=== PATIENT | female | born 1945 | race Caucasian/White ===

== ENCOUNTER 2016-07-05 19:39 | Inpatient (IN) | payer MEDICARE, MEDICAID ==
[~2016-07-05] VITALS: Ht 144.8 cm; Wt 95.2 kg
--- NOTE | ~2016-07-05 | WND ---
ADMIT: 07/05/2016 RM/LOC: 410 [facility] MR#: [id number] [address] [address] [place] [address] Wound Care Clinic SEX: F AGE: 70 : 1945 DATE OF VISIT: 07/06/2016 TIME IN: 8:00 TIME OUT: 8:15 REASON FOR VISIT: Evaluation and treatment of bilateral lower extremities. This is a request for wound care from Dr. Francisco Javier Melchor. HISTORY OF PRESENT ILLNESS: This is a 70-year-old female who is staying at [facility] in [place], [place]. She was noted to have increased confusion as well as foul-smelling urine. A urine was collected that was positive for infection. She was started on Levaquin, but the patient had an intolerance to this medication, so she did not start any antibiotic treatment. Confusion worsened and presented to the emergency room and she was noted to have an elevated lactic acid and white count. Her creatinine had also elevated above baseline. Therefore, she was given fluids and IV antibiotics. It was also noted that she had a bright red, warm right lower extremity. Therefore, Wound Care was consulted for further evaluation and treatment. PAST MEDICAL HISTORY: Shows type 2 diabetes mellitus. Coronary artery disease. Hypertension. Congestive heart failure. COPD. Hypothyroidism. Depression. Dimension. Diabetic neuropathy. PAST SURGICAL HISTORY: Carpal tunnel repair. ALLERGIES: Levaquin, Vioxx, cephalexin, sulfa, epinephrine. CURRENT MEDICATIONS: Per the MAR. Please see the MAR for further details. 1. Aldactone. 2. Carafate. 3. Coreg. 4. Demadex. 5. Effexor. 6. Feosol. 7. Klor-Con. 8. Mag-Ox. 9. Oyster shell with vitamin D. 10.Reglan. 11.Requip. 12.Synthroid. 13.Vitamin B12. 14.Asmanex. 15.Restasis. 16.Levemir. 17.Lovenox. 18.NovoLog. 19.Merrem. P.r.n. Medications: ADMIT: 07/05/2016 RM/LOC: 410 [facility] MR#: [id number] 2620 [facility] [address] [place] [id number] [place] [address] Wound Care Clinic SEX: F AGE: 70 : 1945 1. Colace. 2. Culturelle. 3. FiberCon. 4. Glutose. 5. Hydrocodone/acetaminophen. 6. Maalox. 7. Tylenol. 8. Xanax. 9. Zofran. 10.DuoNeb. 11.Glucagon. 12.Nitrostat. 13.Mycostatin powder. SOCIAL HISTORY: She has a bachelor's degree. Never smoked. No history of chemical or alcohol use. She is currently residing at [facility] in [place]. She is and disabled. FAMILY HISTORY: Shows heart disease, cancer, hypertension, stroke and diabetes. REVIEW OF SYSTEMS: She is examined in her hospital room, where she is awake and alert. She does answer some questions in confused way. For example, when I asked how long her leg had been sore, she said "82 years." She is pleasant. She denies any recent fever or chills. No nausea or vomiting. No cough, cold, or chest pain. She states that on and off she does have some abdominal discomfort, but denies any current nausea or vomiting. She also states she has pain occasionally on and off in her stomach. She also reports occasionally pain in her right leg. FOCUSED EXAM: VITAL SIGNS: 98.3, 80, 14, blood pressure 102/47, O2 sats on room air is 95%. Body-wide skin exam was done. She does have slight redness and moisture in abdominal and pannus folds. No ulcerations noted. To the right lower extremity, foot circumference is 21.5 cm, ankle is 23 cm, and calf 20 cm, malleolus 35 cm. Posterior tibialis and dorsalis pedis is 1+. She does have red, warm edema that runs from her knee to her ankle that is 30 cm in length and is circumferential for 35 cm. Dry skin noted. Hemosiderin staining noted 9 x 13 on the anterior nicolas. Toes with quick capillary refill. No open areas noted. No drainage noted. Dry skin noted. Focused exam of left lower extremity shows foot circumference 22 cm, ankle is 21 cm, and calf 20 cm, malleolus is 36.5 cm. Posterior tibialis is 1+. Dorsalis pedis is 2+. She does have browny hemosiderin staining 13 cm x 13 cm on the anterior nicolas. Dry, flaky skin noted. No surrounding erythema or induration. Minimal edema noted. ADMIT: 07/05/2016 RM/LOC: 410 [facility] MR#: [id number] [address] [place] [id number] [place] [address] Wound Care Clinic SEX: F AGE: 70 : 1945 ASSESSMENT: 1. Moisture-associated dermatitis of groin and abdominal folds. 2. Cellulitis of right lower extremity. 3. Bilateral lower extremity with venous insufficiency changes. TREATMENT PLAN: Since she currently has no openings on her lower extremities, we will apply Aloe [place] to the legs twice daily. Size small EdemaWear from toes to popliteal crease. Recommended that her legs be elevated on pillows with heels floated. IsoFlex mattress she is currently on. Also recommended that the pannus and groin folds be washed twice daily with antibacterial soap and water prior to application of the nystatin b.i.d. Thank you for this referral and allowing us to participate in her care. Nicki Sepulveda APRN/ yolanda JOB #: [id number] CC: Kirill Kraft, Attending Physician Maci Maki, Family Physician
--- NOTE | ~2016-07-05 | ECH ---
Transthoracic Echocardiography Report (TTE) Demographics Patient Name CHRISTINE TURPIN Date of Study 07/06/2016 Patient Number [id number] Visit Number [id number] Date of 1945 Room Number 410 Accession Number [id number] Gender Female Age 70 year(s) Referring Swapnil Talley Blueprint Tracer Clau Moore Physician Teofilo KEARNEY [facility] Alexandre Physician Interpreting Teofilo KEARNEY Family Service Counselor Physician Alexandre Supervising Ordering Physician Swapnil Talley MD/MLP Nurse Stress Foundry Superintendant Conclusions Contractility Score Summary Normal Left Ventricular contractility was noted. Summary Technically adequate exam. The estimated left ventricular ejection fraction is 55-60%. No significant valvular abnormalities. Recommendation The patient will be given the results of this study by the physician who ordered the exam. Procedure Type of Study TTE procedure:Echo Complete SF. Procedure Date Date: 07/06/2016 Start: 10:13 AM Technical Quality: Adequate visualization Indications:Atrial fibrillation, Coronary artery disease, Diabetes and Hypertension. Appropriate Use Criteria: 9 Height: 57 inches Weight: 200 pounds BSA: 1.8 m Rhythm: NSR HR: 85 bpm BP: 112/50 mmHg M-Mode/2D Measurements LV Diastolic Dimension: 4.93 cm LV Systolic Dimension: 3.66 cm LV Septum Diastolic: 0.67 cm LV PW Diastolic: 0.77 cm AO Root Dimension: 2.2 cm Cardiac Output: 5.38 l/min LA Dimension: 3.23 cm Cardiac Index: 2.99 l/min*m RV Diastolic Dimension: 3.28 cm LA volume index: 29 ml/m LVOT: 1.88 cm LVOT VTI: 22.82 cm RV Base: 2.7 cm LV Stroke volume: 63.31 ml RV Mid: 2.4 cm LV Stroke volume index: 35.17 ml/m TAPSE: 2.6 cm TDI-S': 12 cm/s Doppler Measurements AV Peak Velocity: 1.6 m/s MV Peak E-Wave: 1.02 m/s AV Peak Gradient: 10.24 mmHg MV Peak A-Wave: 0.87 m/s AV Mean Gradient: 6.15 mmHg MV E/A Ratio: 1.18 LVOT Peak Velocity: 1.22 m/s MV P1/2t: 61.7 msec AV Area (Continuity):1.95 cm MV Deceleration Time: 198.9 msec TR Velocity:2.25 m/s MV Area (PHT): 3.57 cm TR Gradient:20.25 mmHg PV Peak Velocity: 0.99 m/s Estimated RAP:3 mmHg PV Peak Gradient: 3.94 mmHg Estimated RVSP: 23 mmHg Estimated PASP: 23.25 mmHg E' Septal Velocity: 0.09 m/s A' Septal Velocity: 0.07 m/s E' Lateral Velocity: 0.1 m/s A' Lateral Velocity: 0.08 m/s RA Area: 12.5 cm Findings Left Ventricle Normal left ventricle size and function. Diastolic assessment reveals normal relaxation. Right Ventricle Normal right ventricle structure and function. Left Atrium Normal left atrial size. Right Atrium Normal right atrial size. Mitral Valve Mild mitral annular calcification. Trivial mitral regurgitation by color Doppler. Aortic Valve The aortic valve was not well imaged. The aortic valve is mildly sclerotic. Tricuspid Valve Normal tricuspid valve structure and function. Trivial tricuspid regurgitation by color Doppler. Normal pulmonary pressures. Pulmonic Valve The pulmonic valve is not well visualized. Pericardial Effusion No evidence of pericardial effusion. Miscellaneous Visualized portions of the aortic root and ascending aorta appear normal in size. Pleural Effusion No evidence of pleural effusion. Contractility Score LV regional wall motion:(0-Non visualized 1-Normal 2-Hypokinesis 3-Akinesis 4-Dyskinesis 5-Aneurysm) Signature
--- NOTE | 2016-07-11 11:15 | CO ---
ADMIT: 07/05/2016 RM/LOC: 410 [facility] MR#: [id number] [address] [address] [place] [address] Consultation SEX: F AGE: 70 : 1945 DATE OF CONSULTATION: 07/06/2016 ATTENDING PHYSICIAN: Kirill Kraft CONSULTING PHYSICIAN: Alexandre Red MD REASON FOR CONSULT: Atrial fibrillation. Lesly Jennings RN, scribing for Dr. Alexandre Red. HISTORY OF PRESENT ILLNESS: Gia is a pleasant 70-year-old female, I have been asked to see in Cardiology consultation for Dr. Francisco Javier Melhcor for atrial fibrillation. She has prior history of paroxysmal atrial fibrillation and she follows with [facility] for this. She was last seen in July of 2015, by Dr. Ngo. She has not been on anticoagulation due to history of GI bleed from gastrointestinal stromal tumor, and in July, her office note discussed that they were discussing her case in [place] as to whether not she would benefit from surgical resection. She has history of dementia. She [facility] in a [facility]. She has history of hypertension, hyperlipidemia, diabetes, and former tobacco use, remote. Gia [facility] with increased confusion, positive fever, and has foul-smelling urine with UTI. She was quite confused at the facility, could not recall anything at that time. Currently, she is alert and oriented to her location, day, and self. She denies any symptoms of chest discomfort, shortness of breath, or palpitations. She has had some melena this morning as well. She is on antibiotics. She has been in atrial fibrillation on this admission with heart rates anywhere from 80s to 90s. PAST MEDICAL HISTORY: 1. Diastolic heart failure. 2. Paroxysmal atrial fibrillation. 3. Hypertension. 4. Diabetes. 5. Hyperlipidemia. 6. Remote tobacco use. 7. Right lower extremity cellulitis. 8. Cataracts, status post extraction. 9. COPD. 10.Obstructive sleep apnea. 11.History of GI bleeding. 12.History of gastrointestinal stromal tumor. 13.Acute kidney injury, currently with UTI. 14.Degenerate joint disease. 15.Spinal stenosis. 16.Hypothyroidism. 17.Diabetic neuropathy. 18.Restless legs syndrome. ADMIT: 07/05/2016 RM/LOC: 410 [facility] MR#: [id number] [address] [address] [place] [address] Consultation SEX: F AGE: 70 : 1945 19.Dementia. 20.Depression. PAST SURGICAL HISTORY: Includes; 1. Carpal tunnel release. 2. Cataract extraction. 3. Cholecystectomy. 4. Hysterectomy. ALLERGIES: 1. EPINEPHRINE. 2. PENICILLIN. 3. LEVAQUIN. 4. VIOXX. 5. SULFA. MEDICATIONS: Current medications include; 1. Aldactone 25 daily. 2. Carafate 1 g p.o. a.c. 3. Coreg 3.125 p.o. b.i.d. 4. Demadex 20 daily. 5. Effexor 150 daily. 6. Iron sulfate 325 daily. 7. Potassium chloride 20 mEq p.o. b.i.d. 8. Mag-Ox 400 daily. 9. Oyster shell calcium 500 b.i.d. 10.Reglan 5 b.i.d. 11.Requip 2 mg at bedtime. 12.Synthroid 100 daily. 13.Vitamin B12, 1000 mcg p.o. daily. 14.Asmanex inhalation daily. 15.Restasis 0.4 both eyes b.i.d. 16.Levemir 35 units subcu daily. 17.Lovenox 40 mg subcu daily. 18.NovoLog insulin 18 units subcu a.c. 19.Merrem 1 g IV q.12 hours. FAMILY HISTORY: Positive family history of diabetes in daughter. Positive family history of cancer in mother. Denies family history of heart disease or stroke. SOCIAL HISTORY: Gia lives in penitentiary. She has dementia. She has no alcohol, drug, or current tobacco use. She quit after five-pack year in 1985. REVIEW OF SYSTEMS: GENERAL: Recent fever of 100.3. EYES: History of cataracts, status post extraction. Denies any vision changes currently. THROAT, MOUTH, AND EARS: Denies any sore throat or hearing loss. ADMIT: 07/05/2016 RM/LOC: 410 [facility] MR#: [id number] [address] [place] [phone] [place] [address] Consultation SEX: F AGE: 70 : 1945 RESPIRATORY: She has history of COPD and obstructive sleep apnea. Denies any hemoptysis. GASTROINTESTINAL: She has a large bloody stool this morning. She has history of gallbladder extraction and liver cirrhosis in the past. She denies any trouble swallowing. GENITOURINARY: Currently is admitted with UTI with acute kidney injury. MUSCULOSKELETAL: History of degenerative joint disease. Spinal stenosis. ENDOCRINE: History of diabetes and hypothyroidism. HEMATOLOGIC: She is anemic with a hemoglobin of 10.8. She has history of gastrointestinal stromal cancer. She has bleeding issues currently with GI bleeding. NEUROLOGIC: History of diabetic neuropathy and restless legs syndrome. PSYCHIATRIC: She has history of dementia. Currently, she is alert and oriented x3. Diagnosed with depression. EXTREMITIES: Right lower extremity cellulitis. PHYSICAL EXAMINATION: VITAL SIGNS: Blood pressure 102/47, heart rate 80, respirations 14, temperature 98.3, oxygenation 95% on room air. GENERAL: No acute distress, mildly confused, but is aware of surroundings. SKIN: [place], warm and dry. EYES: Sclerae clear. No xanthelasmas. ENT: Oral mucosa is pink and moist. No jugular venous distention or carotid bruits. CHEST: Respirations are even and unlabored. Lungs are clear to auscultation. HEART: Irregularly irregular. No murmurs, gallops, or rubs. ABDOMEN: Soft and nontender. MUSCULOSKELETAL: Gait is normal EXTREMITIES: Mild edema. PSYCHIATRIC: Alert and oriented. Mood and affect are appropriate. DIAGNOSTIC DATA: Positive UA infection with a culture and sensitivity showing gram-negative rods. Sodium 132, potassium 3.1, BUN 25, creatinine 1.2, glucose 224, magnesium 2.6. CK 63, MB less than 0.5, troponin less than 0.015. TSH 1.28. INR 1.2. White blood cell count 15.5, hemoglobin 10.8, hematocrit 33.2, platelets 99. Lactic acid 2.1. ASSESSMENT AND PLAN: 1. Atrial fibrillation with long history of atrial fibrillation, ADMIT: 07/05/2016 RM/LOC: [address] [place] [address] MR#: [id number] [address] [place] [phone] [place] [address] Consultation SEX: F AGE: 70 : 1945 asymptomatic. No anticoagulation secondary to history of gastrointestinal bleed. Continue beta terrence. 2. Urinary tract infection. 3. Chronic diastolic failure. From a cardiac perspective, Gia is doing well. No further recommendation. She will follow up with Dr. Ngo at [facility] in 1 month. Thank you for the consultation. I have read and agree with the documentation that has been completed regarding this visit. By signing this record, I attest that the documentation was completed in my physical presence and is an accurate record of the encounter. Lesly Jennings RN / Alexandre Red MD / yolanda JOB #: [id number] CC: Kirill Kraft, Attending Physician Maci Maki, Family Physician
--- NOTE | 2016-07-12 12:51 | HP ---
ADMIT: 07/05/2016 RM/LOC: [facility] MR#: [id number] [address] [address] [place] [address] History and Physical SEX: F AGE: 70 : 1945 DATE OF SERVICE: CHIEF COMPLAINT: Increased confusion and foul-smelling urine. HISTORY OF PRESENT ILLNESS: This is a 70-year-old female with past medical history significant for dementia, type 2 diabetes mellitus, coronary artery disease, CHF, hypertension, COPD, admitted with increased confusion and foul- smelling urine. According to the care home, the patient was very confused and combative today. Dr. Kraft was contacted, and the UA was collected that was positive for infection. She was started on Levaquin, but the patient has an intolerances to this medication, so the care home did not give it to her. The confusion worsened and so she was sent to the Emergency Department. In the ED, her vitals were noted to be stable other than a temperature of 100.3. Her lactic acid was elevated to 2.7, and her white count was 21.8 with 18,000 neutrophils. Her creatinine was also elevated to 1.3. She was started on IV fluids and IV Levaquin down in the ER. Her EKG was also significant for atrial fibrillation. In looking back through her records, it does not appear that she has been diagnosed with this in the past. The patient is somewhat confused here in her room and is unable to answer questions regarding her health, but she is able to tell me that she is having some pain in her lower extremities. PAST MEDICAL HISTORY: 1. Type 2 diabetes mellitus. 2. Coronary artery disease. 3. Hypertension. 4. CHF. 5. COPD. 6. Hypothyroidism. 7. Depression. 8. Dementia. 9. Diabetic neuropathy. PAST SURGICAL HISTORY: Carpal tunnel repair. MEDICATIONS: See list. ALLERGIES: EPINEPHRINE, PENICILLIN, LEVAQUIN, VIOXX, AND SULFA. SOCIAL HISTORY: Denies tobacco, alcohol, or illegal drug use. She lives at [facility] in [place]. FAMILY HISTORY: Noncontributory. REVIEW OF SYSTEMS: Unable to obtain due to the patient's dementia. PHYSICAL EXAMINATION: VITAL SIGNS: Blood pressure 104/65, pulse 94, respirations 20, temp 99.6, and saturating 98% on room air. GENERAL: She is alert and oriented to person, but not place or time. ADMIT: 07/05/2016 RM/LOC: 410 [facility] MR#: [id number] [facility] [address] [address] [place] [address] History and Physical SEX: F AGE: 70 : 1945 HEART: Irregularly irregular. LUNGS: Decreased breath sounds at the bases. ABDOMEN: Obese, soft, and nontender. EXTREMITIES: Erythema edema and warmth of the right lower extremity. This was marked. She does have brawny venous stasis changes in the left lower extremity. LABORATORY DATA: Sodium 134, potassium 4.2, and creatinine 1.3. INR 1.2. White count 21.8, hemoglobin 11.7, lactic acid 2.7. UA was significant for greater than 5000 white cells, 3+ leukocyte esterase, positive nitrite, and 4+ blood. Chest x-ray was negative. EKG showed atrial fibrillation with a rate of 96. ASSESSMENT/PLAN: 1. Urosepsis. We did go ahead and stop Levaquin due to her intolerance. She does have a history of vancomycin-resistant UTI, so I started her on Zosyn. We will continue to trend her lactic acid and watch for her urine culture. 2. Right lower extremity cellulitis. Again, she is on Zosyn. We will continue to monitor this. This was marked with a purple pen. 3. Acute kidney injury. We are giving her IV hydration. We will continue to monitor labs. 4. New onset atrial fibrillation. Cardiology has been consulted. We will go ahead and get an echo in the morning. We will need to weigh the risks and benefits of starting anticoagulation on this patient. 5. Hypomagnesemia. I replaced this. We will recheck that in the morning. 6. Skin breakdown. I consulted wound care. 7. Type 2 diabetes mellitus. We will continue her long-acting insulins here in the hospital as well as start her on sliding scale insulin. We will hold all of her oral medications. 8. Coronary artery disease. 9. Hypertension. 10.Hypothyroid. 11.Chronic obstructive pulmonary disease. 12.Dementia. Tangela Gomez DO Resident / Kirill Kraft MD / yolanda JOB #: [id number] CC: Francisco Javier Melchor, Attending Physician Maci Maki, Family Physician
--- NOTE | 2016-07-28 11:58 | DS ---
ADMIT: 07/05/2016 RM/LOC: 410 [facility] MR#: [id number] [address] [address] [place] [address] Discharge Summary SEX: F AGE: 70 : 1945 ADMISSION DATE: 07/05/2016 DISCHARGE DATE: 07/08/2016 DISCHARGE DIAGNOSES: 1. Urosepsis, urine culture grew out E (Escherichia) coli. 2. Right lower extremity cellulitis. 3. Acute kidney injury. 4. Type 2 diabetes mellitus. 5. Atrial fibrillation. 6. Coronary artery disease. 7. Hypertension. 8. Hypothyroidism. 9. COPD (chronic obstructive pulmonary disease). 10.Dementia. 11.History of GI (gastrointestinal) stromal tumor. CONSULTS: Cardiology. HISTORY OF PRESENT ILLNESS: This is a 70-year-old female, who was admitted with increased confusion and foul-smelling urine. According to the prison, the patient was very confused and combative during the day. Dr. Kraft was contacted and the UA was collected that was positive for an infection. She was started on Levaquin at that time but the prison did not give it to her because they noted that she had an intolerance to this medicine. Because she was not taking any antibiotic she started getting worse and so she was sent to the ER. In the emergency room her vitals were noted to be stable other than a temp of 100.3. Her lactic acid was elevated to 2.7, and her white count was 21.8 with 18,000 neutrophils. Her creatinine was also elevated to 1.3. She was started on IV fluids and IV Levaquin down in the ER. Her EKG was also significant for atrial fibrillation with rate controlled in the 80s and 90s. HOSPITAL COURSE: Because of the patient's intolerance to Levaquin this was stopped and she was started on Zosyn for urosepsis. She was also noted to have some cellulitis on her right lower extremity and it was felt that Zosyn could cover this as well. It was then noted that she had an allergy to penicillin so she was switched to meropenem at that time. Her lactic acid continued to trend down after being on antibiotics and the confusion seemed to clear up. Cardiology was consulted because it was not found that she had atrial fibrillation in old records but they had actually been seeing her for several years and knew that she had atrial fibrillation and was on a beta- terrence for this. She is not on any anticoagulation due to history of a bleeding stromal tumor. Cardiology felt that it was okay for her to continue with the beta terrence and no new orders were needed for her atrial fibrillation. They plan to have her follow up with Dr. Ngo in one month. An echo was done that showed an ejection fraction of 55-60%. Wound Care was consulted because she was noted to have some wounds on her gluteal region and so these were managed by the wound care team. She did have an episode of a melanotic stool and so her Lovenox that was being used for DVT prophylaxis was ADMIT: 07/05/2016 RM/LOC: 410 [facility] MR#: [id number] [address] [place] [id number] [place] [address] Discharge Summary SEX: F AGE: 70 : 1945 held. Her hemoglobin remained stable. She continued to do well in the hospital and was discharged back to the [facility] on 07/08/2016. DISCHARGE MEDICATIONS: 1. Aldactone 25 mg p.o. daily. 2. Carafate 1 g b.i.d. 3. Coreg 3.125 mg b.i.d. 4. Demadex 20 mg daily. 5. Effexor 150 mg p.o. daily. 6. Feosol 325 mg p.o. daily. 7. Klor-Con 20 mEq p.o. b.i.d. 8. Mag oxide 400 mg p.o. daily. 9. Oyster shell with vitamin D 500 mg p.o. b.i.d. 10.Pepcid 20 mg p.o. b.i.d. 11.Reglan 5 mg p.o. b.i.d. 12.Requip 2 mg p.o. at night. 13.Synthroid 0.1 mg p.o. at 0530 hours. 14.Vitamin B12 1000 mcg p.o. daily. 15.Flovent 1 inhalation daily. 16.Restasis 0.4 mL each eye b.i.d. 17.Levemir 35 units subcu daily. 18.NovoLog 18 units subcu before every meal. 19.Low-dose sliding scale NovoLog insulin. 20.Rocephin 2 g IM for 10 days total. DISCHARGE INSTRUCTIONS: The patient has a followup appointment with Dr. Kraft in seven days. She also will follow up with Dr. Ngo in one month. She needs UA and a CBC at her followup. Tangela Gomez DO Resident / Kirill Kraft MD / vdg JOB #: [id number] CC: Kirill Kraft MD, Attending Physician Maci Maki MD, Family Physician
[2016-07-29] MEDS ORDERED: ALDACTONE DPS25 MG PO (16:13)
[2016-07-29] MEDS ORDERED: CULTURELLE1 CAP PO (16:14)
[2016-07-29] MEDS ORDERED: CARVEDILOL3.125 MG PO (16:14)
[2016-07-29] MEDS ORDERED: CARAFATE DPS1 GM PO (16:14)
[2016-07-29] MEDS ORDERED: DEMADEX20 MG PO (16:14)
[2016-07-29] MEDS ORDERED: EFFEXOR XR150 MG PO (16:15)
[2016-07-29] MEDS ORDERED: GLUCOPHAGE DPS850 MG PO (16:15)
[2016-07-29] MEDS ORDERED: FEOSOL-DPS325 MG PO (16:15)
[2016-07-29] MEDS ORDERED: MAG-OX400 MG PO (16:16)
[2016-07-29] MEDS ORDERED: KLOR-CON M2020 ME1 PO (16:16)
[2016-07-29] MEDS ORDERED: OYSTER SHELL 21 EACH PO (16:16)
[2016-07-29] MEDS ORDERED: PROTONIX40 MG PO (16:17)
[2016-07-29] MEDS ORDERED: REQUIP DPS2 MG PO (16:17)
[2016-07-29] MEDS ORDERED: REGLAN DPS5 MG PO (16:17)
[2016-07-29] MEDS ORDERED: SYNTHROID DPS0.1 MG PO (16:21)
[2016-07-29] MEDS ORDERED: VIBRAMYCIN-DPS100 M2 PO (16:21)
[2016-07-29] MEDS ORDERED: LEVEMIR100 UNIT/1 SQ (16:22)
[2016-07-29] MEDS ORDERED: RESTASIS1 EACH OU (16:22)
[2016-07-29] MEDS ORDERED: VITAMIN B-12500 MCG PO (16:22)
[2016-07-29] MEDS ORDERED: ASMANEX1 INH IH (16:22)
[2016-07-29] MEDS ORDERED: NOVOLOG100 UNIT/2 SQ ×2 (16:25→16:26)
[2016-07-29] MEDS ORDERED: CLEOCIN HCL300 MG PO (16:27)
--- NOTE | 2016-08-08 07:29 | ER ---
ADMIT: 07/05/2016 RM/LOC: 410 [facility] MR#: [id number] [address] [address] [place] [address] Emergency Room Report SEX: F AGE: 70 : 1945 DATE: 07/05/2016 ADDENDUM: See T-sheet for complete H and P. prison patient, comes in with increased confusion and bad smelling urine. taken at the detention and they were to start Levaquin, but there was some confusion whether the patient actually had an allergy to Levaquin, but was started on Levaquin. We did do the sepsis protocol, and the patient in the Emergency Department. PHYSICAL EXAMINATION: On physical exam, she notes to have some significant erythema to her right lower leg consistent with cellulitis. Remainder of the physical exam, other than some confusion, was pretty unremarkable. We did check cardiac enzymes normal x1. Her lactic acid is elevated at 2.7. Procalcitonin was 0.80. White count is elevated at 21.8 with an ANC of 18.7. She was given IV Levaquin in the Emergency Department, and will be admitted to Dr. Stoner's service. DIAGNOSES: 1. Urinary tract infection. 2. Sepsis. 3. Cellulitis. 4. Atrial fibrillation. 5. Diabetes. Chet Christianson MD/ yolanda JOB #: [id number] CC: Kirill Kraft MD, Attending Physician Maci Maki MD, Family Physician
== END 2016-07-08 14:34 | DRG 872 ==
LOC: ER 19:39 → 4PCU 21:30
PROVIDERS: ADMIT Family Medicine
DX: A41.9 Sepsis, unspecified organism (principal); N17.9 Acute kidney failure, unspecified; E11.40 Type 2 diabetes mellitus with diabetic neuropathy, unspecified; N39.0 Urinary tract infection, site not specified; I50.30 Unspecified diastolic (congestive) heart failure; F03.90 Unspecified dementia, unspecified severity, without behavioral disturbance, psychotic disturbance, mood disturbance, and anxiety; I48.0 Paroxysmal atrial fibrillation; K74.60 Unspecified cirrhosis of liver; I11.0 Hypertensive heart disease with heart failure; E83.42 Hypomagnesemia; C49.A0 Gastrointestinal stromal tumor, unspecified site; G25.81 Restless legs syndrome; L03.115 Cellulitis of right lower limb; K92.1 Melena; R65.20 Severe sepsis without septic shock; B96.20 Unspecified Escherichia coli [E. coli] as the cause of diseases classified elsewhere; G47.33 Obstructive sleep apnea (adult) (pediatric); M19.90 Unspecified osteoarthritis, unspecified site; M48.00 Spinal stenosis, site unspecified; E78.5 Hyperlipidemia, unspecified; E11.9 Type 2 diabetes mellitus without complications; I25.10 Atherosclerotic heart disease of native coronary artery without angina pectoris; J44.9 Chronic obstructive pulmonary disease, unspecified; E03.9 Hypothyroidism, unspecified; F32.9 Major depressive disorder, single episode, unspecified; Z87.891 Personal history of nicotine dependence; Z79.4 Long term (current) use of insulin

== ENCOUNTER 2016-07-20 18:02 | Inpatient (IN) | payer MEDICARE, MEDICAID ==
[~2016-07-20] VITALS: Ht 144.8 cm; Wt 92.7 kg
--- NOTE | 2016-07-22 01:36 | ER ---
ADMIT: 07/20/2016 RM/LOC: ER [facility] MR#: [id number] [address] [address] [place] [address] Emergency Room Report SEX: F AGE: 70 : 1945 DATE: 07/20/2016 CHIEF COMPLAINT: Increased redness, right lower leg, with recent cellulitis. HISTORY OF PRESENT ILLNESS: The patient is a 70-year-old female, who lives at [facility] in [place], who comes in by ambulance for complaints of increasing redness in her lower extremity. She had admission to the hospital from 07/05 through 07/08 for cellulitis, urinary tract infection, and early sepsis. While she was in the hospital, she got IV antibiotics and was discharged home on oral antibiotics. I have limited history as the patient has some dementia and cannot tell me a great deal of her recent history, but she does come with report that they noticed that she had more redness in the leg today. She does have some tenderness around that lower leg. REVIEW OF SYSTEMS: Difficult to obtain secondary to patient's dementia. PAST MEDICAL HISTORY: Significant for coronary artery disease, atrial fibrillation, CHF, insulin-dependent diabetes, hypertension, morbid obesity, GERD, hypothyroidism, depression, dementia. PAST SURGICAL HISTORY: Carpal tunnel. MEDICATIONS: See nurse's note. She is on Rocephin oral at this time. ALLERGIES: PENICILLIN, LEVAQUIN, AND SULFA. SOCIAL HISTORY: Denies smoking, drug, or alcohol use. Does live at a senior care. PHYSICAL EXAMINATION: See T-sheet for complete exam. LABORATORY AND X-RAY DATA: Chest x-ray shows nothing acute. White count of 10.9, hemoglobin of 10.9, platelets 140. Chemistries are normal other than a glucose of 197. Procalcitonin is normal at less than 0.05. Lactic acid is slightly elevated at 2.7. Cardiac enzymes are negative x1. INR is 1.09. Urinalysis shows trace nitrite and 1+ leuk esterase. EMERGENCY DEPARTMENT COURSE: We did do the sepsis routine on the patient due to the fact that she had a recent hospitalization with an elevated lactic with recent infections of cellulitis and UTI. The results of her testing here showed that her lactic acid is slightly elevated. The rest of her labs were ADMIT: 07/20/2016 RM/LOC: [facility] MR#: [id number] [address] [address] [facility] [address] Emergency Room Report SEX: F AGE: 70 : 1945 unremarkable. She does have increased erythema extending beyond where the borders are drawn on her leg earlier. Due to the fact she has multiple comorbidities, I do not feel comfortable having her go back to the senior care at this time. We will be getting her admitted for further management of her cellulitis and possible early sepsis with elevated lactic acid. She has meropenem and vancomycin started in the Emergency Department. I spoke to Dr. Schmid, who will be bringing the patient in as she normally sees Dr. Kraft. DIAGNOSES: 1. Early sepsis. 2. Elevated lactic acid. 3. Cellulitis, right leg. Chet Christianson MD/ thomasl JOB #: [id number] CC: Chet Christianson MD, Attending Physician Kirill Kraft MD, Family Physician
[2016-07-29] MEDS ORDERED: ALDACTONE DPS25 MG PO (16:13)
[2016-07-29] MEDS ORDERED: CARAFATE DPS1 GM PO (16:14)
[2016-07-29] MEDS ORDERED: DEMADEX20 MG PO (16:14)
[2016-07-29] MEDS ORDERED: CULTURELLE1 CAP PO (16:14)
[2016-07-29] MEDS ORDERED: CARVEDILOL3.125 MG PO (16:14)
[2016-07-29] MEDS ORDERED: FEOSOL-DPS325 MG PO (16:15)
[2016-07-29] MEDS ORDERED: EFFEXOR XR150 MG PO (16:15)
[2016-07-29] MEDS ORDERED: GLUCOPHAGE DPS850 MG PO (16:15)
[2016-07-29] MEDS ORDERED: OYSTER SHELL 21 EACH PO (16:16)
[2016-07-29] MEDS ORDERED: MAG-OX400 MG PO (16:16)
[2016-07-29] MEDS ORDERED: KLOR-CON M2020 ME1 PO (16:16)
[2016-07-29] MEDS ORDERED: REQUIP DPS2 MG PO (16:17)
[2016-07-29] MEDS ORDERED: REGLAN DPS5 MG PO (16:17)
[2016-07-29] MEDS ORDERED: PROTONIX40 MG PO (16:17)
[2016-07-29] MEDS ORDERED: VIBRAMYCIN-DPS100 M2 PO (16:21)
[2016-07-29] MEDS ORDERED: SYNTHROID DPS0.1 MG PO (16:21)
[2016-07-29] MEDS ORDERED: RESTASIS1 EACH OU (16:22)
[2016-07-29] MEDS ORDERED: VITAMIN B-12500 MCG PO (16:22)
[2016-07-29] MEDS ORDERED: ASMANEX1 INH IH (16:22)
[2016-07-29] MEDS ORDERED: LEVEMIR100 UNIT/1 SQ (16:22)
[2016-07-29] MEDS ORDERED: NOVOLOG100 UNIT/2 SQ ×2 (16:25→16:26)
[2016-07-29] MEDS ORDERED: CLEOCIN HCL300 MG PO (16:27)
--- NOTE | 2016-08-05 07:44 | HP ---
ADMIT: 07/20/2016 RM/LOC: 417 [facility] MR#: [id number] [address] [facility] [address] [place] [id number] [place] [address] History and Physical SEX: F AGE: 70 : 1945 DATE OF SERVICE: CHIEF COMPLAINT: Right lower extremity pain, erythema, and swelling. HISTORY OF PRESENT ILLNESS: This is a 70-year-old white female, who has a long history of recurrent UTIs, has had VRE and urosepsis, recently hospitalized for lower extremity cellulitis, was treated with IV antibiotics and then ultimately switched over to oral antibiotics, sent back to the long term on July 08. Unfortunately over the last several days, she has had increasing erythema and pain in both lower extremities with more so on the right lower extremity. She denies any fevers or chills, but unfortunately is not a great historian because of her dementia. Because of increasing redness and failed outpatient therapy, she was transferred to the emergency room where it was felt that she needed to be admitted for IV antibiotics and further treatment. Her lactic acid is elevated a little bit, but she does not meet any other septic criteria. PAST MEDICAL HISTORY: Remarkable for chronic kidney disease secondary to diabetic nephropathy, diabetes mellitus type 2, vascular dementia, hypertension, urinary incontinence, previous history of VRE and urosepsis, has also had recent hospitalization for cellulitis, chronic diastolic congestive heart failure, morbid obesity, chronic lymphedema, and anemia of chronic disease. CURRENT MEDICATIONS: Include: Sliding scale NovoLog. Acetaminophen 325 mg 2 tabs q.4 hours p.r.n. NovoLog 18 units subcu before meals. Ropinirole 2 mg 1 tab at bedtime. MiraLAX 17 g daily. Lactobacillus 1 capsule daily. Alprazolam 0.5 mg 1 tab by mouth b.i.d. p.r.n. Coreg 3.125 mg b.i.d. Docusate sodium 100 mg p.r.n. Ferrous sulfate 325 mg daily. Fiber-Lax 625 mg 1 tab daily p.r.n. Fluticasone 1 dose inhaled b.i.d. Lortab 5/325 one q.6 hours p.r.n. DuoNeb treatment q.i.d. p.r.n. Lantus 35 units subcu q.a.m. Levothyroxine 100 mcg daily. Magnesium oxide 400 mg daily. Metformin 850 mg b.i.d. Reglan 5 mg b.i.d. Nystatin powder b.i.d. p.r.n. Zofran 4 mg q.4 hours p.r.n. Oyster shell calcium with vitamin D 1 tab b.i.d. Potassium chloride ER 20 mEq 1 tab b.i.d. Restasis b.i.d. ADMIT: 07/20/2016 RM/LOC: 417 [facility] MR#: [id number] [address] [address] [place] [address] History and Physical SEX: F AGE: 70 : 1945 Spironolactone 25 mg daily. Sucralfate 1 g b.i.d. Torsemide 20 mg daily. Venlafaxine ER 150 mg daily. Vitamin B12, 1000 mcg 1 tab daily. She also is on: 1. Levemir. 2. Spironolactone. 3. Potassium chloride. 4. Metoclopramide. 5. Vitamin B12. 6. Carvedilol. 7. Rocephin. 8. Doxycycline, but I do not have the doses on that at this time. ALLERGIES: INCLUDE EPINEPHRINE, PENICILLIN, SULFA, LEVAQUIN, AND VIOXX. SOCIAL HISTORY: Does not smoke. Does not drink. Lives at [facility]. FAMILY HISTORY: Her father with PR and mother with COPD. REVIEW OF SYSTEMS: Really unreliable secondary to mental status, but she denies any fevers or chills, but no recent changes in weight. No nausea, vomiting, diarrhea, or constipation. No dysuria, urgency, or frequency. ENDOCRINE: No polyuria or polydipsia. PSYCH: No depression. OBJECTIVE: VITAL SIGNS: Blood pressure is 122/72, pulse 90, respirations 17, and temp 99.6. GENERAL: She is in no acute distress. She is alert and oriented. HEENT: Pupils are reactive. Conjunctivae are clear. Clear oropharynx. Moist mucous membranes. NECK: Soft and supple without lymphadenopathy. No thyromegaly. LUNGS: Clear to auscultation with decreased breath sounds. HEART: Regular rate and rhythm. ABDOMEN: Soft, obese, nontender. EXTREMITIES: No cyanosis. No clubbing. There is significant erythema of the right lower extremity. Just a little bit with some chronic venous changes on the left. SKIN: No new rashes. NEUROLOGIC: Cranial nerves II through XII are grossly intact. She does have some baseline vascular dementia. LAB/X-RAY DATA: UA shows trace blood, 1+ leukocyte esterase. White count 10,900, hemoglobin 10.9, and platelets 140,000. INR is 1.09. Sodium 136, potassium 4.0, chloride 99, CO2 29, BUN 20, creatinine 1.0, glucose 197, ADMIT: 07/20/2016 RM/LOC: 417 [facility] MR#: [id number] [address] [place] [id number] [place] [address] History and Physical SEX: F AGE: 70 : 1945 calcium 8.4, inorganic phosphorus 2.5, total bilirubin is 0.4, total protein 7.4, albumin 2.7, alkaline phosphatase 109, AST 23, ALT 25, magnesium 1.9. CK 56, MB less than 0.5, relative index less than 0.9 troponin I is less than 0.015. Lactic acid is 2.7. Blood cultures pending. Procalcitonin was less than 0.05. DIAGNOSTIC DATA: Chest x-ray showed no acute process. ASSESSMENT: 1. Right lower extremity cellulitis. 2. Diabetes mellitus type 2. 3. Hypertension. 4. Morbid obesity. 5. Chronic kidney disease. 6. Hypertension. PLAN: We will admit, start IV vancomycin, IV Merrem, and sliding scale insulin. Continue home medicines. Recheck blood work, and we will change treatment plan as hospital course dictates. Garett Schmid MD/ yolanda JOB #: [id number] CC: Kirill Kraft, Attending Physician Kirill Kraft, Family Physician
--- NOTE | 2016-09-11 07:59 | DS ---
ADMIT: 07/20/2016 RM/LOC: 523 [facility] MR#: [id number] [address] [address] [place] [address] General Discharge Summary SEX: F AGE: 70 : 1945 ADMISSION DATE: 07/20/2016 DISCHARGE DATE: 07/28/2016 FINAL DIAGNOSES: 1. Right lower extremity cellulitis. 2. Diabetes mellitus type 2. 3. Hypertension. 4. Morbid obesity. 5. Chronic kidney disease. 6. Hyperlipidemia. 7. Vascular dementia. 8. Urinary incontinence. 9. Previous history of vancomycin-resistant enterococci. 10.Chronic diastolic congestive heart failure. 11.Chronic lymphedema. 12.Anemia of chronic disease. REASON FOR ADMISSION: Please refer to dictated H and P. Briefly, the patient with the above diagnoses, history of right lower extremity cellulitis, was having increasing redness, pain and swelling in the right lower extremity. She was admitted for further workup and management of this. The patient was started on IV antibiotics. Over the course of her time here, redness, swelling, and pain gradually improved. Compression stockings used to help get the swelling out of her legs. There were no other major events during her hospitalization. No significant evidence of sepsis or other significant infection. By day of discharge, the patient was feeling much better. DISCHARGE MEDICATIONS: Please refer to hospital record. DISCHARGE INSTRUCTIONS: The patient was instructed to take all medications as prescribed. Take antibiotics for their full duration. Follow up with her primary care provider in 1 week. If worsening symptoms, contact clinic sooner. Discharge activities took approximately 35 minutes. Clem Sauceda MD/ yolanda JOB #: [id number] CC: Clem Sauceda MD, Attending Physician Kirill Kraft MD, Family Physician
== END 2016-07-28 15:00 | DRG 603 ==
LOC: ER 18:02 → 4PCU 20:12 → 5MS 20:12
PROVIDERS: ADMIT Family Medicine
DX: L03.115 Cellulitis of right lower limb (principal); I50.32 Chronic diastolic (congestive) heart failure; I13.0 Hypertensive heart and chronic kidney disease with heart failure and stage 1 through stage 4 chronic kidney disease, or unspecified chronic kidney disease; E11.21 Type 2 diabetes mellitus with diabetic nephropathy; Z68.41 Body mass index [BMI] 40.0-44.9, adult; N18.9 Chronic kidney disease, unspecified; I25.10 Atherosclerotic heart disease of native coronary artery without angina pectoris; I48.91 Unspecified atrial fibrillation; E66.01 Morbid (severe) obesity due to excess calories; K21.9 Gastro-esophageal reflux disease without esophagitis; Z66 Do not resuscitate; I89.0 Lymphedema, not elsewhere classified; D63.1 Anemia in chronic kidney disease; E03.9 Hypothyroidism, unspecified; F32.9 Major depressive disorder, single episode, unspecified; F01.50 Vascular dementia, unspecified severity, without behavioral disturbance, psychotic disturbance, mood disturbance, and anxiety; R32 Unspecified urinary incontinence; Z16.21 Resistance to vancomycin; Z79.4 Long term (current) use of insulin; Z82.49 Family history of ischemic heart disease and other diseases of the circulatory system